=== PATIENT | male | born 1980 | race Caucasian/White ===

== ENCOUNTER 2016-09-26 20:31 | Emergency (ER) | payer OTHER ==
[~2016-09-26] VITALS: Ht 177.8 cm; Wt 74.8 kg
[2016-09-26 20:44] VITALS: BP 128/78
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
[2016-09-26] MEDS ORDERED: PERCOCET 5-3251 EACH PO (21:25)
--- NOTE | 2016-09-26 21:36 | RADIOLOGY REPORT ---
EXAMINATION: XR FINGER, RIGHT CLINICAL INFORMATION: Right index finger injury. Evaluate for a foreign body. COMPARISON: No relevant prior studies are available for comparison. TECHNIQUE: An AP view of the right hand as well as lateral and oblique views of the right index finger were obtained. FINDINGS: No fracture or dislocation. No osseous erosion. Soft tissue defect of the distal index finger, consistent with a laceration. No associated radiopaque foreign body. IMPRESSION: Soft tissue defect in the distal index finger, consistent with a laceration. No associated radiopaque foreign body. No fracture.
== END 2016-09-26 21:57 ==
LOC: ERH 20:31
DX: S61.211A Laceration without foreign body of left index finger without damage to nail, initial encounter (principal); V86.59XA Driver of other special all-terrain or other off-road motor vehicle injured in nontraffic accident, initial encounter
CPT/HCPCS: 73140-RT; 90471